=== PATIENT | female | born 2000 | race Two or more races ===

== ENCOUNTER 2018-05-04 07:55 | Emergency (ER) | payer SELFPAY ==
[~2018-05-04] VITALS: Ht 160 cm; Wt 74.8 kg
[2018-05-04 08:03] VITALS: BP 132/93
[2018-05-04] MEDS ORDERED: DEXAMETHASONE SOD PHOS 10MG/1ML VIAL INJ IM ONE (08:30)
[2018-05-04] MEDS ORDERED: KETOROLAC TROMETH 60MG/2ML VIAL IM ONE (08:30)
== END 2018-05-04 09:47 | disposition home or self-care (01) ==
LOC: ER 07:58
DX: S93.402A Sprain of unspecified ligament of left ankle, initial encounter (principal); S30.0XXA Contusion of lower back and pelvis, initial encounter; S69.92XA Unspecified injury of left wrist, hand and finger(s), initial encounter; S99.922A Unspecified injury of left foot, initial encounter; V03.00XA Pedestrian on foot injured in collision with car, pick-up truck or van in nontraffic accident, initial encounter; Y93.89 Activity, other specified; Y99.8 Other external cause status; Y92.89 Other specified places as the place of occurrence of the external cause
CPT/HCPCS: 72170; 73110; 73130; 73610; 73630; 96372; 99284; J1100; J1885